=== PATIENT | female | born 1975 | race Caucasian/White ===

== ENCOUNTER → 2018-04-02 15:53 | Outpatient (CLI) | payer OTHER, SELFPAY ==
--- NOTE | 2018-04-02 | MM_ITS ---
MM Dig screening mamm BI w/CAD CAD Screening COMPARISON: None, this is baseline INDICATION: There is no personal or family history of breast cancer TECHNIQUE: Standard CC and MLO images were obtained. R2 CAD reviewed. FINDINGS: There is a diffusely dense and heterogenic parenchymal pattern somewhat lessening the sensitivity of mammography. There are nodular densities in each breast probably representing cyst or fibroadenomas recommend patient return for spot compression views and ultrasound for additional evaluation. There are scattered benign-appearing calcifications in each breast many of which appear to be cutaneous. There is no suspicious lesion and there are no suspicious microcalcifications. IMPRESSION: Dense parenchyma pattern with nodular densities in each breast BI-RADS Category: 0 Need Additional Imaging Evaluation RECOMMENDED FOLLOW-UP: IMM - IMMEDIATE FOLLOW-UP RECOMMENDED (A letter has been sent to the patient regarding results of the study.)
== END ==
PROVIDERS: PCP Family Medicine; Visit Provider Nurse Practitioner Obstetrics & Gynecology
DX: Z12.31 Encounter for screening mammogram for malignant neoplasm of breast (principal)
CPT/HCPCS: 77067

== ENCOUNTER → 2018-04-29 12:50 | Outpatient (CLI) | payer OTHER, SELFPAY ==
--- NOTE | 2018-04-29 12:53 | MM_ITS ---
MM Dig mamm BI DX w/CAD, US breast RT complete, US breast LT complete INDICATION: Follow-up abnormal mammogram ORDERING PHYSICIAN: [facility]ailJign[facility] PATIENT AGE: 43 years COMPARISON: 04/02/2018 TECHNIQUE: Problem-solving views are performed along with bilateral breast ultrasound FINDINGS: There is dense fibroglandular tissue which decreases sensitivity of mammography. A palpable abnormality should be managed on a clinical basis. Right breast: There is a benign-appearing 5 mm nodule in the 8:00 region of the right breast. Scattered benign-appearing calcifications are present as well. No malignant appearing mass or malignant appearing microcalcification. Right breast ultrasound: There is a hypoechoic nodule at 9:00 measuring 5 mm and may correspond to the mammographic abnormality. There are some low-level echoes within the nodule however this could be due to technique. There is enhanced through transmission of sound. This may represent small cyst Left breast: Asymmetric density in the medial aspect of the left breast does appear to compress out on at least one of the medial spot compression views. This is not identified in the orthogonal plane.. Scattered benign-appearing calcifications are present. 8 mm nodular opacity noted at the 1:00 region and may correspond to a 7 x 3 mm cyst is seen on the ultrasound. Left breast ultrasound: 7 x 3 mm cyst at 12:00, 3 mm cyst at 11:00, 5 x 3 mm cyst at 11:00, no suspicious nodules evident. IMPRESSION: No convincing evidence of malignancy. There are bilateral probably benign-appearing nodules and bilateral benign-appearing calcifications. Recommend bilateral month mammographic and sonographic follow-up with spot compression views as performed on today's exam BI-RADS Category: 3 Probably Benign Finding Short Term Follow-up RECOMMENDED FOLLOW-UP: 6M - 6 MONTH FOLLOW-UP (A letter has been sent to the patient regarding results of the study.)
== END ==
PROVIDERS: PCP Family Medicine; Visit Provider Nurse Practitioner Obstetrics & Gynecology
DX: R92.8 Other abnormal and inconclusive findings on diagnostic imaging of breast (principal)
CPT/HCPCS: 76641; 77066